=== PATIENT | male | born 1995 | race Caucasian/White ===

== ENCOUNTER → 2022-11-23 10:42 | Outpatient (CLI) | payer OTHER, SELFPAY ==
--- NOTE | 2022-11-23 10:48 | DI.MRI.S_ITS ---
PROCEDURE: MR FOOT RT WO/W CON INDICATIONS: Localized swelling, mass and lump, right lower limb TECHNIQUE: Noncontrast coronal T1 spin echo and STIR, sagittal T1 spin echo with fat saturation and STIR, axial T1 spin echo and T2 fast spin echo with fat saturation. After the administration of contrast, axial/sagittal/coronal T1 spin echo with fat saturation through the right foot. COMPARISON: None. FINDINGS: Image quality: Excellent. Bones: Fiducial marker is placed over dorsal aspect of midfoot over distal talus. The visualized bone marrow demonstrates normal signal on all sequences. The overlying cortex appears intact. No abnormal intraosseous enhancement. Soft tissues: Lobulated homogeneously T2 hyperintense and T1 hypointense structure is seen over dorsal aspect of midfoot at the level of distal talus deep to the marker and measures up to 1.2 x 1.1 x 0.9 cm in size. The structure is closely associated with the adjacent extensor hallucis longus tendon at this level. After IV contrast infusion, no enhancement is noted within this region. No enhancing soft tissue masses are visualized. The scanned muscles demonstrate normal overall bulk and internal signal. Subcutaneous tissues appear normal as well. No abnormal soft tissue enhancement. IMPRESSION: 1. Finding most likely represent a ganglion cyst over dorsal aspect of midfoot at the level of distal talus and is closely associated with adjacent extensor hallucis longus tendon. 2. No enhancing soft tissue mass is seen. No abnormal intraosseous enhancement. 3. No marrow edema. No fracture or dislocation. No metatarsal stress fracture. Dictated by: Ten Wyatt M.D. on 11/24/2022 at 9:07 Approved by: Ten Wyatt M.D. on 11/24/2022 at 9:11
== END ==
PROVIDERS: Referring Provider Orthopaedic Surgery; Visit Provider Orthopaedic Surgery
DX: R22.41 Localized swelling, mass and lump, right lower limb (principal)
CPT/HCPCS: 73720; A9579